=== PATIENT | male | born 1980 | race Caucasian/White ===

== ENCOUNTER 2021-01-31 17:26 | Emergency (ER) | payer MEDICARE, MEDICAID ==
[2021-01-31] MEDS ORDERED: IBUPROFEN600 MG PO (18:48)
[2021-01-31] MEDS ORDERED: LIDOCAINE PAIN1 EACH TP (18:48)
[2021-01-31] MEDS ORDERED: ACYCLOVIR800 MG PO (18:48)
== END 2021-01-31 18:55 | disposition home or self-care (01) ==
LOC: ER1 17:26
DX: B02.9 Zoster without complications (principal); F17.210 Nicotine dependence, cigarettes, uncomplicated; J44.9 Chronic obstructive pulmonary disease, unspecified
CPT/HCPCS: 96372; 99282; J1100

== ENCOUNTER → 2022-05-23 | Emergency (ER) | payer MEDICARE, MEDICAID ==
[~2022-05-23] MED LIST: ACYCLOVIR800 MG PO; AZITHROMYCIN250 MG PO; IBUPROFEN600 MG PO; LIDOCAINE PAIN1 EACH TP
[2022-05-23 12:09] LABS: HEMOGLOBIN 13.6 gm/dl (14.0-17.5); RED BLOOD COUNT 4.53 M/UL (4.20-5.50); WHITE BLOOD COUNT 6.4 K/UL (4.5-11.0)
[2022-05-23 12:30] LABS: BUN/CREATININE RATIO 15 (0-10)
== END | disposition home or self-care (01) ==
LOC: ER1 11:03
PROVIDERS: Emergency Medicine
DX: R91.8 Other nonspecific abnormal finding of lung field (principal); Z20.822 Contact with and (suspected) exposure to COVID-19; Z88.2 Allergy status to sulfonamides
CPT/HCPCS: 71045; 80053; 82550; 82553; 84484; 85025; 85379; 93005; 99285; U0002